=== PATIENT | female | born 1990 | race Caucasian/White ===

== ENCOUNTER → 2021-04-04 | Outpatient (CLI) | payer OTHER ==
[~2021-04-04] MED LIST: COLACE 100MG C100 MG PO; FLUOXETINE HCL20 MG PO; IBUPROFEN600 MG PO; LORTAB 5-325 M1 EACH PO; MEDROL DOSEPAK 24 MG PO; NORCO 5-325 TA1 EACH PO; PRENATAL 19 TA1 EACH PO; PRILOSEC OTC20 MG PO; SINGULAIR10 MG PO; SPRINTEC 28 DA1 EACH PO; VENTOLIN HFA 66.7 GM INH; ZYRTEC10 MG PO
== END ==
LOC: EXRD 15:35
DX: E04.9 Nontoxic goiter, unspecified (principal); E04.1 Nontoxic single thyroid nodule
CPT/HCPCS: 76536

== ENCOUNTER → 2021-04-12 | Outpatient (CLI) | payer OTHER | LOC: KOH-I 08:55 | DX: M25.521 Pain in right elbow (principal); M25.522 Pain in left elbow | CPT/HCPCS: 73080 ==

== ENCOUNTER → 2021-06-25 | Outpatient (CLI) | payer OTHER | LOC: KOH-I 15:37 | DX: M25.572 Pain in left ankle and joints of left foot (principal) | CPT/HCPCS: 73610; 73630 ==